=== PATIENT | female | born 1955 | race Caucasian/White ===

== ENCOUNTER 2017-04-20 11:44 | Observation (INO) | payer BC ==
[~2017-04-20] VITALS: Ht 167.6 cm; Wt 68.9 kg
[2017-04-20] MEDS ORDERED: SODIUM CHLORIDE FLUSH 10ML SYR IVF ONE (12:30)
[2017-04-20] MEDS ORDERED: ONDANSETRON 2MG/ML, 2ML IVPush ONE (12:30)
[2017-04-20] MEDS ORDERED: SODIUM CHLORIDE 0.9% 1,000ML IVBOLUS ONE (12:30)
[2017-04-20 12:35] LABS: HEMATOCRIT 43.4 % (34.6-47.8); HEMOGLOBIN 14.5 g/dL (11.7-16.4); WHITE BLOOD COUNT 15.6 x10^3/uL (3.4-10)
[2017-04-20 13:15] LABS: ASPARTATE AMINO TRANSFERASE 16 U/L (15-37); BLOOD UREA NITROGEN 9 mg/dL (7-18)
[2017-04-20] MEDS ORDERED: ONDANSETRON 2MG/ML, 2ML ONE (13:21)
[2017-04-20] MEDS ORDERED: PROMETHAZINE 25 MG/ML, 1ML IM ONE (14:00)
[2017-04-20] MEDS ORDERED: PROMETHAZINE 25 MG/ML, 1ML ONE (14:01)
[2017-04-20] MEDS ORDERED: morphine SULFATE 10 MG/ML, 1ML IVPush ONE (14:30)
[2017-04-20] MEDS ORDERED: morphine SULFATE 10 MG/ML, 1ML ONE (14:35)
[2017-04-20] MEDS ORDERED: DICYCLOMINE 10 MG/ML, 2ML IM ONE (17:00)
[2017-04-20] MEDS ORDERED: LORazepam 2 MG/ML, 1ML ONE (17:41)
[2017-04-20 18:10] VITALS: BP 115/68
[2017-04-20] MEDS ORDERED: ONDANSETRON 2MG/ML, 2ML IVPush PRN (18:30)
[2017-04-20] MEDS ORDERED: ENOXAPARIN 40 MG/0.4 ML SQ SCH (18:30)
[2017-04-20] MEDS ORDERED: ONDANSETRON ODT 4 MG PO PRN (18:30)
[2017-04-20] MEDS ORDERED: HYDROcodone/APAP 5/325 TABLET PO PRN (18:30)
[2017-04-20] MEDS ORDERED: DOCUSATE 100 MG CAPSULE PO PRN (18:30)
[2017-04-20] MEDS ORDERED: ACETAMINOPHEN 325 MG TABLET PO PRN (18:30)
[2017-04-20] MEDS ORDERED: POLYETHYLENE GLYCOL 17 GM PACKET PO PRN (18:30)
[2017-04-20] MEDS ORDERED: hydrALAzine 20 MG/ML, 1ML IVPush PRN (18:30)
[2017-04-20] MEDS ORDERED: BISACODYL 10 MG SUPP PR PRN (18:30)
[2017-04-20] MEDS ORDERED: ZOLPIDEM 5MG TABLET PO PRN (18:30)
[2017-04-20] MEDS ORDERED: morphine SULFATE 10 MG/ML, 1ML IVPush PRN (18:30)
[2017-04-20 19:49] VITALS: BP 145/78
[2017-04-20] MEDS: NS + 20MEQ KCL 1,000 ML IV SCH (20:56)
[2017-04-20] MEDS: FAMOTIDINE 20 MG TABLET PO SCH (21:02)
[2017-04-20] MEDS ORDERED: PROMETHAZINE 25 MG/ML, 1ML IM PRN (23:30)
[2017-04-21 03:29] VITALS: BP 153/53
[2017-04-21] MEDS: NS + 20MEQ KCL 1,000 ML IV SCH (05:27)
[2017-04-21 06:02] LABS: HEMATOCRIT 41.1 % (34.6-47.8); HEMOGLOBIN 13.9 g/dL (11.7-16.4)
[2017-04-21 06:21] LABS: BLOOD UREA NITROGEN 9 mg/dL (7-18)
[2017-04-21 07:38] VITALS: BP 118/71
[2017-04-21] MEDS: FAMOTIDINE 20 MG TABLET PO SCH (08:14)
[2017-04-21 14:31] VITALS: BP 132/64
== END 2017-04-21 17:05 | disposition home or self-care (01) ==
LOC: ED 15:39 → INTOOBSV 15:48 → EDIP 15:48 → 4NOR 17:55
PROVIDERS: ADMIT Hospitalist; ATTEND Family Medicine
DX: R10.9 Unspecified abdominal pain (principal); R11.2 Nausea with vomiting, unspecified; D72.829 Elevated white blood cell count, unspecified
CPT/HCPCS: 36415; 74022; 80048; 80053; 81003; 83690; 85025; 85651; 93005; 96361; 96372; 96374; 96375; 96376; 99285; G0378; J1650; J2270; J2405; J2550; J3480; J7030; Q0162

== ENCOUNTER 2017-06-12 09:14 | Inpatient (IN) | payer BC ==
[~2017-06-12] VITALS: Ht 167.6 cm; Wt 67.8 kg
[2017-06-12] MEDS ORDERED: ONDANSETRON 2MG/ML, 2ML ONE (10:26)
[2017-06-12] MEDS ORDERED: MORPHINE SULFATE 4 MG/ML, 1ML ONE ×2 (10:26→11:36)
[2017-06-12] MEDS ORDERED: FAMOTIDINE 20 MG/2 ML ONE (10:27)
[2017-06-12] MEDS ORDERED: FAMOTIDINE 20 MG/2 ML IVP ONE (10:30)
[2017-06-12] MEDS ORDERED: SODIUM CHLORIDE 0.9% 1,000ML IVBOLUS ONE (10:30)
[2017-06-12] MEDS ORDERED: SODIUM CHLORIDE FLUSH 10ML SYR IVF ONE (10:30)
[2017-06-12] MEDS ORDERED: ONDANSETRON 2MG/ML, 2ML IVPush ONE (10:30)
[2017-06-12] MEDS: MORPHINE SULFATE 4 MG/ML, 1ML IVPush PRN ×2 (10:31→11:38)
[2017-06-12 10:52] LABS: MEAN CORPUSCULAR HEMOGLOBIN 31.2 pg (27.0-34.8); MEAN CORPUSCULAR VOLUME 91.6 fL (80-100); MEAN PLATELET VOLUME 9.5 fL (7.4-10.4); PLATELET COUNT 253 x10^3/uL (130-400); RED CELL DISTRIBUTION WIDTH 12.9 % (9.6-15.2)
[2017-06-12 11:01] LABS: ALANINE AMINOTRANSFERASE 22 U/L (12-78); ALBUMIN 4.3 g/dL (3.4-5.0); ANION GAP 12 mmol/L (5-15); CALCIUM 9.4 mg/dL (8.5-10.1); CHLORIDE 107 mmol/L (98-107); CREATININE 0.91 mg/dL (0.55-1.02)
[2017-06-12 11:03] LABS: ALKALINE PHOSPHATASE 83 U/L (45-117); BILIRUBIN,TOTAL 0.6 mg/dL (0.2-1.0)
[2017-06-12 11:13] LABS: MD YES
[2017-06-12 11:14] LABS: BAND#(MANUAL) 0.56 x10^3/uL; BANDS%(MANUAL) 3 % (0-7); LYMPH#(MANUAL) 2.07 x10^3/uL (1-3.4); LYMPHS% (MANUAL) 11 % (22-44); MONOS#(MANUAL) 1.32 x10^3/uL (0.3-2.7); MONOS% (MANUAL) 7 % (2-9); SEG#(MANUAL) 14.85 x10^3/uL (1.8-6.8); SEGS% (MANUAL) 79 % (42-75)
[2017-06-12 11:15] LABS: <PLATELET ESTIMATE> ADEQUATE; <PLT MORPHOLOGY> NORMAL PLT MORPH; <RBC MORPHOLOGY> NORMAL
[2017-06-12 11:55] LABS: MICROSCOPIC NOT IND
[2017-06-12 11:58] LABS: CULTURE INDICATED? NO
[2017-06-12 14:25] VITALS: BP 129/80
[2017-06-12] MEDS ORDERED: ONDANSETRON 2MG/ML, 2ML IVPush PRN (15:00)
[2017-06-12] MEDS ORDERED: PROMETHAZINE 25 MG/ML, 1ML IM PRN (15:00)
[2017-06-12] MEDS ORDERED: ACETAMINOPHEN 325 MG TABLET PO PRN (16:30)
[2017-06-12] MEDS ORDERED: morphine SULFATE 10 MG/ML, 1ML IVPush PRN (16:30)
[2017-06-12] MEDS ORDERED: OXYcodone IR 5MG TABLET PO PRN (16:30)
[2017-06-12] MEDS ORDERED: ENALAPRILAT 1.25 MG/ML, 2ML IVPush PRN (16:30)
[2017-06-12] MEDS ORDERED: hydrALAzine 20 MG/ML, 1ML IVPush PRN (16:30)
[2017-06-12] MEDS ORDERED: POTASSIUM CHLORIDE 20 MEQ TAB.ER.PRT PO ONE (16:30)
[2017-06-12 17:02] LABS: FREE T4 (FREE THYROXINE) 1.42 ng/dL (0.76-1.46); THYROID STIMULATING HORMONE 1.91 mIU/L (0.358-3.740)
[2017-06-12 17:04] LABS: AMPHETAMINE SCREEN, URINE Negative (Negative); BARBITURATE SCREEN, URINE Negative (Negative); BENZODIAZEPINE SCREEN, URINE Negative (Negative); CANNABINOID SCREEN, URINE Positive (Negative); COCAINE SCREEN, URINE Negative (Negative); METHADONE SCREEN, URINE Negative (Negative); OPIATE SCREEN, URINE Positive (Negative)
[2017-06-12 17:24] LABS: HEMOGLOBIN A1C 5.4 % (4.2-6.3)
[2017-06-12] MEDS: D5%-0.9% NACL+KCL 20MEQ 1,000 ML IV SCH (17:45)
[2017-06-12] MEDS: METOCLOPRAMIDE 5 MG/ML, 2ML IVPush SCH (17:46)
[2017-06-12] MEDS: HEPARIN 5,000 UNITS/ML, 1ML SQ SCH (20:22)
[2017-06-12 20:23] VITALS: BP 100/64
[2017-06-13 01:28] VITALS: BP 97/60
[2017-06-13] MEDS: METOCLOPRAMIDE 5 MG/ML, 2ML IVPush SCH ×3 (01:32→17:24)
[2017-06-13] MEDS: D5%-0.9% NACL+KCL 20MEQ 1,000 ML IV SCH ×2 (03:05→13:59)
[2017-06-13] MEDS: HEPARIN 5,000 UNITS/ML, 1ML SQ SCH ×2 (05:16→13:00)
[2017-06-13 05:53] LABS: BASOPHILS # (AUTO) 0.03 x10^3/uL (0-0.1); BASOPHILS % (AUTO) 0 % (0-1); EOSINOPHILS # (AUTO) 0.01 x10^3/uL (0-0.4); EOSINOPHILS % (AUTO) 0 % (1-7); LYMPHOCYTES # (AUTO) 2.34 x10^3/uL (1-3.4); LYMPHOCYTES % (AUTO) 19 % (22-44); MD NO; MEAN CORPUSCULAR HEMOGLOBIN 30.9 pg (27.0-34.8); MEAN PLATELET VOLUME 8.4 fL (7.4-10.4); MONOCYTES # (AUTO) 0.99 x10^3/uL (0.2-0.8); MONOCYTES % (AUTO) 8 % (2-9); NEUTROPHILS # (AUTO) 9.11 x10^3/uL (1.8-6.8); NEUTROPHILS % (AUTO) 73 % (42-75); PLATELET COUNT 173 x10^3/uL (130-400); RED BLOOD COUNT 4.28 x10^6/uL (3.82-5.3)
[2017-06-13 06:03] LABS: CHLORIDE 113 mmol/L (98-107)
[2017-06-13 06:09] LABS: ALANINE AMINOTRANSFERASE 15 U/L (12-78); ALBUMIN 3.2 g/dL (3.4-5.0); ALKALINE PHOSPHATASE 67 U/L (45-117); ANION GAP 4 mmol/L (5-15); BILIRUBIN,TOTAL 1.1 mg/dL (0.2-1.0); CALCIUM 8.7 mg/dL (8.5-10.1); CHOL/HDL RATIO 3.6; CHOLESTEROL, TOTAL 171 mg/dL (140-239); CREATININE 0.76 mg/dL (0.55-1.02); HDL CHOL % 28 % (28-40); HDL CHOLESTEROL (DIRECT) 48 mg/dL (40-60); LDL CHOLESTEROL,CALCULATED 98 mg/dL (54-169); TRIGLYCERIDES 126 mg/dL (50-200); VLDL CHOLESTEROL 25 mg/dL (0-25)
[2017-06-13 09:27] VITALS: BP 112/73
[2017-06-13 14:17] VITALS: BP 138/80
[2017-06-13] MEDS ORDERED: PROM25SU34 RC (17:33)
== END 2017-06-13 18:24 | disposition home or self-care (01) | DRG 392 ==
LOC: ED 10:15 → EDIP 12:09 → 3NE 13:52
PROVIDERS: ADMIT Internal Medicine; ATTEND Internal Medicine
DX: R11.2 Nausea with vomiting, unspecified (principal); D72.823 Leukemoid reaction; D72.829 Elevated white blood cell count, unspecified; E87.6 Hypokalemia; R20.8 Other disturbances of skin sensation; F12.10 Cannabis abuse, uncomplicated
CPT/HCPCS: 36415; 74021; 80053; 80061; 80307; 81003; 83036; 83690; 83735; 84100; 84439; 84443; 85025; 93005; 96361; 96374; 96375; 96376; J2405; J2550; G0479; J2765; J3480; J7030; S0028

== ENCOUNTER 2018-09-28 08:45 | Inpatient (IN) | payer BC ==
[~2018-09-28] VITALS: Ht 167.6 cm; Wt 73.9 kg
[~2018-09-28 08:45] MED LIST: PROM25SU34 RC
--- NOTE | 2018-09-28 08:48 | NUR ---
PATIENT ARRIVES WITH RONNISA FROM HOME WITH ABDOMINAL MIGRAINES EXACERBATION. STATES LONG HX OF THESE INCLUDING RECENT ENDO AND COLONOSCOPY. PATIENT STATES PHENERGAN HELPS. PATIENT HAD FENTANYL 100MCG AND PHENERGAN IN ROUTE. IN BED, GOWN ON, ON MONITOR. 93% ROOM AIR, PLACED ON TWO LITERS NC
[2018-09-28] MEDS ORDERED: METOCLOPRAMIDE 5 MG/ML, 2ML ONE (08:56)
[2018-09-28] MEDS ORDERED: SODIUM CHLORIDE 0.9% 1,000ML IVBOLUS ONE (09:00)
[2018-09-28] MEDS ORDERED: METOCLOPRAMIDE 5 MG/ML, 2ML IVPush ONE (09:00)
[2018-09-28 09:10] LABS: BASOPHILS # (AUTO) 0.02 x10^3/uL (0-0.1); BASOPHILS % (AUTO) 0 % (0-1); EOSINOPHILS # (AUTO) 0.02 x10^3/uL (0-0.4); EOSINOPHILS % (AUTO) 0 % (1-7); LYMPHOCYTES # (AUTO) 1.48 x10^3/uL (1-3.4); LYMPHOCYTES % (AUTO) 10 % (22-44); MD NO; MEAN CORPUSCULAR HEMOGLOBIN 29.7 pg (27.0-34.8); MEAN CORPUSCULAR HGB CONC 32.3 g/dL (32.4-35.8); MEAN CORPUSCULAR VOLUME 91.9 fL (80-100); MEAN PLATELET VOLUME 8.6 fL (7.4-10.4); MONOCYTES # (AUTO) 0.25 x10^3/uL (0.2-0.8); MONOCYTES % (AUTO) 2 % (2-9); NEUTROPHILS # (AUTO) 13.09 x10^3/uL (1.8-6.8); NEUTROPHILS % (AUTO) 88 % (42-75); PLATELET COUNT 231 x10^3/uL (130-400); RED BLOOD COUNT 4.92 x10^6/uL (3.82-5.3)
[2018-09-28 09:17] LABS: CHLORIDE 106 mmol/L (98-107)
[2018-09-28 09:22] LABS: ALANINE AMINOTRANSFERASE 20 U/L (12-78); ALBUMIN 3.9 g/dL (3.4-5.0); ANION GAP 7 mmol/L (5-15); CALCIUM 9.1 mg/dL (8.5-10.1)
[2018-09-28 09:24] LABS: MICROSCOPIC NOT IND
[2018-09-28 09:24] LABS: ALKALINE PHOSPHATASE 89 U/L (45-117); BILIRUBIN,TOTAL 0.6 mg/dL (0.2-1.0); TOTAL PROTEIN 7.1 g/dL (6.4-8.2)
[2018-09-28 09:31] LABS: CULTURE INDICATED? NO
[2018-09-28] MEDS ORDERED: PROMETHAZINE 25 MG/ML, 1ML IM ONE (10:00)
[2018-09-28] MEDS ORDERED: PROMETHAZINE 25 MG/ML, 1ML ONE (10:07)
[2018-09-28] MEDS ORDERED: MORPHINE SULFATE 4 MG/ML, 1ML ONE ×2 (10:50→15:07)
--- NOTE | 2018-09-28 10:57 | NUR ---
PATIENT HAS MULTIPLE REQUESTS. WALKED HER X1 TO BATHROOM AND SHE WAS VERY UPSET AND MOANING. GOT HER BACK IN BED WITH TWO BLANKETS PATIENT ON MONITOR. MEDICATED AND FLUIDS HUNG. THEN PATIENT HAD TO URINATE AGAIN AND APPARENTLY HELPED HER ON BEDPAN BEFORE I WAS AWARE OF THIS. I BROUGHT A BEDSIDE COMMODE INTO ROOM AND HELPED HER TO BEDSIDE COMMODE. SHE HAD CLEAR URINE OUT. SHE IS ANGRY, UPSET, MOANING. MEDICATING AGAIN. MOANING SHE STATES ABD PAIN AND NAUSEA. ONE LITER FLUID IN.
[2018-09-28] MEDS ORDERED: MORPHINE SULFATE 4 MG/ML, 1ML IVPush PRN (11:00)
--- NOTE | 2018-09-28 11:19 | NUR ---
patient awaiting ct scan. states some improvement from morphine but still very upset/moaning/nausea.
--- NOTE | 2018-09-28 11:43 | NUR ---
PATIENT IN ROOM, ROOM DIMMED FOR COMFORT. VSS. PATIENT AWAITING CT RESULTS.
--- NOTE | 2018-09-28 14:58 | NUR ---
patient continues to wait for room assignment on med surg. vss. in bed, rails up
--- NOTE | 2018-09-28 15:27 | NUR ---
attempted to call report to [facility] on 4th floor. patient in bed, calm. PA was here rounding on patient. Patient was asleep, but when she woke up she asked for pain meds, but is very quiet and has been quietly sleeping for hours. PA and myself collaborated and agree patient can wait until she is more awake for pain medications as she is very sleepy for more pain medications at this time. will attempt to call fourth floor again for report, nurse currently not available. patient in bed, rails up.
[2018-09-28] MEDS ORDERED: ACETAMINOPHEN 325 MG TABLET PO PRN (15:30)
[2018-09-28] MEDS: ENOXAPARIN 40 MG/0.4 ML SQ SCH (15:30)
[2018-09-28] MEDS ORDERED: morphine SULFATE 10 MG/ML, 1ML IVPush PRN (15:30)
[2018-09-28] MEDS ORDERED: DOCUSATE 100 MG CAPSULE PO PRN (15:30)
--- NOTE | 2018-09-28 15:42 | NUR ---
report given to hollis patient going to [phone]
--- NOTE | 2018-09-28 15:50 | NUR ---
report given britty patient rtg
[2018-09-28 15:59] LABS: HEMOGLOBIN A1C 5.5 % (4.2-6.3)
[2018-09-28 16:02] LABS: THYROID STIMULATING HORMONE 1.76 mIU/L (0.358-3.740)
[2018-09-28 16:24] VITALS: BP 130/53
[2018-09-28] MEDS: NS + 20MEQ KCL 1,000 ML IV SCH (17:01)
[2018-09-28] MEDS: PROMETHAZINE 25 MG SUPP PR SCH ×3 (17:02→21:50)
[2018-09-28] MEDS ORDERED: MAGNESIUM SULFATE PMX 2GM/50ML 50 ML IV ONE (18:30)
[2018-09-28] MEDS ORDERED: POTASSIUM PHOSPHATE 22 MEQ in SODIUM CHLORIDE 0.9% 500 ML IV ONE (18:30)
[2018-09-28 20:23] VITALS: BP 129/61
[2018-09-28] MEDS: FAMOTIDINE 20 MG/2 ML IVPush SCH (20:37)
[2018-09-28] MEDS: ONDANSETRON 2MG/ML, 2ML IVPush SCH (20:38)
[2018-09-29 01:57] VITALS: BP 121/59
[2018-09-29] MEDS: ONDANSETRON 2MG/ML, 2ML IVPush SCH ×2 (03:00→09:00)
[2018-09-29] MEDS: NS + 20MEQ KCL 1,000 ML IV SCH ×3 (03:58→20:50)
[2018-09-29 05:15] LABS: BASOPHILS # (AUTO) 0.04 x10^3/uL (0-0.1); BASOPHILS % (AUTO) 0 % (0-1); EOSINOPHILS % (AUTO) 0 % (1-7); LYMPHOCYTES # (AUTO) 0.88 x10^3/uL (1-3.4); LYMPHOCYTES % (AUTO) 6 % (22-44); MD NO; MEAN CORPUSCULAR HEMOGLOBIN 30.9 pg (27.0-34.8); MEAN CORPUSCULAR HGB CONC 34.3 g/dL (32.4-35.8); MEAN CORPUSCULAR VOLUME 90.2 fL (80-100); MEAN PLATELET VOLUME 8.7 fL (7.4-10.4); MONOCYTES % (AUTO) 3 % (2-9); NEUTROPHILS # (AUTO) 13.77 x10^3/uL (1.8-6.8); NEUTROPHILS % (AUTO) 91 % (42-75); PLATELET COUNT 219 x10^3/uL (130-400); RED BLOOD COUNT 4.74 x10^6/uL (3.82-5.3); RED CELL DISTRIBUTION WIDTH 12.8 % (9.6-15.2)
[2018-09-29 05:17] LABS: ANION GAP 7 mmol/L (5-15); CALCIUM 9.1 mg/dL (8.5-10.1); CHLORIDE 109 mmol/L (98-107)
[2018-09-29 05:20] LABS: ALANINE AMINOTRANSFERASE 18 U/L (12-78); ALKALINE PHOSPHATASE 83 U/L (45-117); BILIRUBIN,TOTAL 0.7 mg/dL (0.2-1.0); CREATININE 0.75 mg/dL (0.55-1.02); TOTAL PROTEIN 7.1 g/dL (6.4-8.2)
[2018-09-29] MEDS: FAMOTIDINE 20 MG/2 ML IVPush SCH ×2 (07:56→20:50)
[2018-09-29 09:38] VITALS: BP 152/81
[2018-09-29 10:49] LABS: CLOSTRIDIUM DIFFICILE ANTIGEN POSITIVE; CLOSTRIDIUM DIFFICILE TOXIN NEGATIVE (Negative)
[2018-09-29] MEDS: PROMETHAZINE 25 MG SUPP PR SCH (11:03)
[2018-09-29 13:45] VITALS: BP 142/77
[2018-09-29] MEDS ORDERED: PROMETHAZINE 25 MG SUPP PR PRN (15:00)
[2018-09-29] MEDS ORDERED: ONDANSETRON 2MG/ML, 2ML IVPush PRN (15:00)
[2018-09-29] MEDS: ENOXAPARIN 40 MG/0.4 ML SQ SCH (15:30)
[2018-09-29] MEDS ORDERED: PROMETHAZINE 12.5 MG SUPP PR PRN (15:30)
[2018-09-29 19:59] VITALS: BP 163/83
[2018-09-30 01:06] VITALS: BP 150/81
[2018-09-30] MEDS: NS + 20MEQ KCL 1,000 ML IV SCH (05:00)
[2018-09-30 05:12] LABS: BASOPHILS # (AUTO) 0.03 x10^3/uL (0-0.1); BASOPHILS % (AUTO) 0 % (0-1); EOSINOPHILS # (AUTO) 0.01 x10^3/uL (0-0.4); EOSINOPHILS % (AUTO) 0 % (1-7); LYMPHOCYTES # (AUTO) 1.53 x10^3/uL (1-3.4); LYMPHOCYTES % (AUTO) 11 % (22-44); MD NO; MEAN CORPUSCULAR HEMOGLOBIN 30.4 pg (27.0-34.8); MEAN CORPUSCULAR HGB CONC 33.3 g/dL (32.4-35.8); MEAN CORPUSCULAR VOLUME 91.4 fL (80-100); MEAN PLATELET VOLUME 8.5 fL (7.4-10.4); MONOCYTES # (AUTO) 0.75 x10^3/uL (0.2-0.8); MONOCYTES % (AUTO) 5 % (2-9); NEUTROPHILS # (AUTO) 12.17 x10^3/uL (1.8-6.8); NEUTROPHILS % (AUTO) 84 % (42-75); PLATELET COUNT 230 x10^3/uL (130-400); RED CELL DISTRIBUTION WIDTH 12.8 % (9.6-15.2)
[2018-09-30 05:19] LABS: ANION GAP 7 mmol/L (5-15); CHLORIDE 104 mmol/L (98-107)
[2018-09-30 05:21] LABS: CREATININE 0.71 mg/dL (0.55-1.02)
[2018-09-30 07:48] VITALS: BP 136/66
[2018-09-30] MEDS: FAMOTIDINE 20 MG/2 ML IVPush SCH (08:17)
[2018-09-30] MEDS ORDERED: VANC125C3 PO (10:18)
[2018-09-30] MEDS ORDERED: VANCOMYCIN 50 MG/ML ORAL SUSP PO SCH (10:30)
[2018-09-30 14:33] VITALS: BP 152/86
== END 2018-09-30 15:29 | disposition home or self-care (01) | DRG 372 ==
LOC: ED 10:02 → EDIP 12:05 → 4NOR 16:10
PROVIDERS: ADMIT Internal Medicine; ATTEND Internal Medicine
DX: A04.72 Enterocolitis due to Clostridium difficile, not specified as recurrent (principal); E87.1 Hypo-osmolality and hyponatremia; G43.D0 Abdominal migraine, not intractable; K31.89 Other diseases of stomach and duodenum; R11.2 Nausea with vomiting, unspecified; E87.6 Hypokalemia; E83.39 Other disorders of phosphorus metabolism; F12.10 Cannabis abuse, uncomplicated; K57.90 Diverticulosis of intestine, part unspecified, without perforation or abscess without bleeding; R73.9 Hyperglycemia, unspecified; K44.9 Diaphragmatic hernia without obstruction or gangrene; E83.42 Hypomagnesemia; E86.0 Dehydration; D72.829 Elevated white blood cell count, unspecified
CPT/HCPCS: 36415; 87046; 87427; J3370; J3490; 74177; 80048; 80053; 81003; 83036; 83690; 83735; 84100; 84443; 85025; 87324; 87493; 96361; 96372; 96374; 96375; 99285; G0378; J2550; J3480; J2765; J3475; J7030; J7040

== ENCOUNTER 2018-12-15 05:42 | Inpatient (IN) | payer BC ==
[~2018-12-15] VITALS: Ht 167.6 cm; Wt 73.6 kg
[~2018-12-15 05:42] MED LIST changes: +VANC125C3 PO
--- NOTE | 2018-12-15 05:53 | NUR ---
LISA RN: PT BIB [facility] FOR [facility] ABD PAIN. PT REPORTS SHE IS HAVING AN ABDOMINAL MIGRAINE. PT CRYING AND MOVING AROUND BED. VS STABLE. UNABLE TO GET AN ORAL TEMP AT THIS TIME. PT HAS NAUSEA. CALL LIGHT IN PLACE. REPORT GIVEN TO OBED APARICIO
--- NOTE | 2018-12-15 06:15 | NUR ---
REPORT FROM KENDY CLAY. TECH AT BEDSIDE TO PLACE PIV. PT VOMITING AND COMPLAINING OF DIARRHEA. PT PLACED ON ISO.
[2018-12-15] MEDS ORDERED: METOCLOPRAMIDE 5 MG/ML, 2ML IVPush ONE (06:30)
[2018-12-15] MEDS ORDERED: DIPHENHYDRAMINE 50 MG/ML, 1ML IVPush ONE (06:30)
[2018-12-15] MEDS ORDERED: SODIUM CHLORIDE FLUSH 10ML SYR IVF ONE (06:30)
[2018-12-15] MEDS ORDERED: FAMOTIDINE 20 MG/2 ML IVPush ONE (06:30)
[2018-12-15] MEDS ORDERED: FAMOTIDINE 20 MG TABLET PO ONE (06:30)
[2018-12-15] MEDS ORDERED: METOCLOPRAMIDE 5 MG/ML, 2ML ONE (06:33)
[2018-12-15] MEDS ORDERED: DIPHENHYDRAMINE 50 MG/ML, 1ML ONE (06:33)
[2018-12-15] MEDS ORDERED: FAMOTIDINE 20 MG/2 ML ONE (06:34)
[2018-12-15 06:48] LABS: MEAN CORPUSCULAR HEMOGLOBIN 30.2 pg (27.0-34.8); MEAN CORPUSCULAR HGB CONC 32.9 g/dL (32.4-35.8); MEAN CORPUSCULAR VOLUME 91.8 fL (80-100); MEAN PLATELET VOLUME 8.8 fL (7.4-10.4); PLATELET COUNT 248 x10^3/uL (130-400); RED BLOOD COUNT 4.88 x10^6/uL (3.82-5.3); RED CELL DISTRIBUTION WIDTH 12.9 % (9.6-15.2)
--- NOTE | 2018-12-15 06:51 | NUR ---
PT MEDICATED. BEDSIDE COMMODE PLACED IN ROOM. PT AWARE THAT STOOL SAMPLE AND UA. REPORT TO GRETCHEN CLAY.
[2018-12-15 06:58] LABS: ALANINE AMINOTRANSFERASE 24 U/L (12-78); ALBUMIN 4.3 g/dL (3.4-5.0); ANION GAP 13 mmol/L (5-15); CALCIUM 9.4 mg/dL (8.5-10.1); CHLORIDE 105 mmol/L (98-107); CREATININE 1.07 mg/dL (0.55-1.02)
[2018-12-15 07:03] LABS: ALKALINE PHOSPHATASE 97 U/L (45-117); BILIRUBIN,TOTAL 0.5 mg/dL (0.2-1.0); TOTAL PROTEIN 7.7 g/dL (6.4-8.2)
--- NOTE | 2018-12-15 07:03 | NUR ---
RECEIVED REPORT FROM OBED APARICIO. ASSUMED CARE OF PATIENT. PATIENT LYING ON GURNEY WITH EYE MASK IN PLACE.
[2018-12-15 07:08] LABS: BASOPHILS # (AUTO) 0.04 x10^3/uL (0-0.1); BASOPHILS % (AUTO) 0 % (0-1); EOSINOPHILS # (AUTO) 0.02 x10^3/uL (0-0.4); EOSINOPHILS % (AUTO) 0 % (1-7); LYMPHOCYTES # (AUTO) 1.52 x10^3/uL (1-3.4); LYMPHOCYTES % (AUTO) 9 % (22-44); MD SCAN; MONOCYTES # (AUTO) 0.56 x10^3/uL (0.2-0.8); MONOCYTES % (AUTO) 3 % (2-9); NEUTROPHILS # (AUTO) 15.69 x10^3/uL (1.8-6.8); NEUTROPHILS % (AUTO) 88 % (42-75)
[2018-12-15 07:26] LABS: MICROSCOPIC NOT IND
--- NOTE | 2018-12-15 07:27 | NUR ---
UA COLLECTED AND SENT TO LAB.
[2018-12-15 07:28] LABS: CULTURE INDICATED? NO
[2018-12-15] MEDS ORDERED: HALOPERIDOL 5 MG/ML IM ONE (08:00)
[2018-12-15] MEDS ORDERED: PROMETHAZINE 25 MG/ML, 1ML IM ONE (08:00)
[2018-12-15] MEDS ORDERED: HALOPERIDOL 5 MG/ML ONE (08:29)
[2018-12-15] MEDS ORDERED: PROMETHAZINE 25 MG/ML, 1ML ONE (08:29)
--- NOTE | 2018-12-15 09:08 | NUR ---
PT REPORTS NO DECREASE IN PAIN DESPITE MEDICATION. LOWERED HEAD OF BED AND PROVIDED PILLOW PER PATIENTS REQUEST. PT SPOUSE AT BEDSIDE.
[2018-12-15] MEDS ORDERED: PARO7.5C2 PO (12:26)
[2018-12-15] MEDS ORDERED: RIZA10TA22 BC (12:30)
[2018-12-15] MEDS ORDERED: AMIT10TA PO (12:31)
[2018-12-15 14:00] VITALS: BP 136/56
[2018-12-15] MEDS ORDERED: METOCLOPRAMIDE 5 MG/ML, 2ML IVPush PRN (14:30)
[2018-12-15] MEDS ORDERED: ONDANSETRON 2MG/ML, 2ML IVPush PRN (14:30)
[2018-12-15] MEDS ORDERED: morphine SULFATE 10 MG/ML, 1ML IVPush PRN (14:30)
[2018-12-15] MEDS ORDERED: PROMETHAZINE 25 MG/ML, 1ML IM PRN (14:30)
[2018-12-15] MEDS: ENOXAPARIN 40 MG/0.4 ML SQ SCH (15:24)
[2018-12-15] MEDS: POTASSIUM CHLORIDE 40 MEQ in SODIUM CHLORIDE 0.9% 1,000 ML IV SCH (15:24)
[2018-12-15 19:31] VITALS: BP 100/53
[2018-12-16] MEDS: POTASSIUM CHLORIDE 40 MEQ in SODIUM CHLORIDE 0.9% 1,000 ML IV SCH ×2 (00:04→06:44)
[2018-12-16 00:53] VITALS: BP 112/63
[2018-12-16 04:41] LABS: BASOPHILS # (AUTO) 0.02 x10^3/uL (0-0.1); BASOPHILS % (AUTO) 0 % (0-1); EOSINOPHILS % (AUTO) 0 % (1-7); LYMPHOCYTES # (AUTO) 1.45 x10^3/uL (1-3.4); LYMPHOCYTES % (AUTO) 9 % (22-44); MD NO; MEAN CORPUSCULAR HEMOGLOBIN 30.1 pg (27.0-34.8); MEAN CORPUSCULAR VOLUME 91.4 fL (80-100); MEAN PLATELET VOLUME 8.9 fL (7.4-10.4); MONOCYTES # (AUTO) 0.91 x10^3/uL (0.2-0.8); MONOCYTES % (AUTO) 6 % (2-9); NEUTROPHILS # (AUTO) 13.63 x10^3/uL (1.8-6.8); NEUTROPHILS % (AUTO) 85 % (42-75); PLATELET COUNT 239 x10^3/uL (130-400); RED CELL DISTRIBUTION WIDTH 13.1 % (9.6-15.2)
[2018-12-16 04:49] LABS: CHLORIDE 109 mmol/L (98-107)
[2018-12-16 04:53] LABS: HEMOGLOBIN A1C 5.5 % (4.2-6.3)
[2018-12-16 04:58] LABS: ALANINE AMINOTRANSFERASE 22 U/L (12-78); ALBUMIN 4.2 g/dL (3.4-5.0); ALKALINE PHOSPHATASE 88 U/L (45-117); ANION GAP 7 mmol/L (5-15); CALCIUM 9.1 mg/dL (8.5-10.1); CREATININE 0.85 mg/dL (0.55-1.02); TOTAL PROTEIN 7.5 g/dL (6.4-8.2)
[2018-12-16 08:27] VITALS: BP 150/88
[2018-12-16 13:01] VITALS: BP 144/89
[2018-12-16] MEDS: ENOXAPARIN 40 MG/0.4 ML SQ SCH (15:00)
== END 2018-12-16 17:25 | disposition home or self-care (01) | DRG 392 ==
LOC: ED 06:54 → EDIP 09:47 → 3NW 10:05
PROVIDERS: ADMIT Internal Medicine; ATTEND Internal Medicine
DX: R11.2 Nausea with vomiting, unspecified (principal); D72.829 Elevated white blood cell count, unspecified; E11.65 Type 2 diabetes mellitus with hyperglycemia; E86.0 Dehydration; E87.6 Hypokalemia; F12.20 Cannabis dependence, uncomplicated; G89.29 Other chronic pain; G43.D0 Abdominal migraine, not intractable; K44.9 Diaphragmatic hernia without obstruction or gangrene; K57.90 Diverticulosis of intestine, part unspecified, without perforation or abscess without bleeding; Z80.7 Family history of other malignant neoplasms of lymphoid, hematopoietic and related tissues
CPT/HCPCS: 36415; 99285; J3490; 80053; 81003; 83036; 83690; 83735; 84100; 85025; 96372; 96374; 96375; G0378; J2405; J2550; J3480; J1200; J1630; J2765; J7030

== ENCOUNTER 2019-10-14 01:15 | Emergency (ER) | payer BC ==
[~2019-10-14] VITALS: Ht 167.6 cm; Wt 70.5 kg
[~2019-10-14 01:15] MED LIST changes: +AMIT10TA PO; +PARO7.5C2 PO; +RIZA10TA92 BC
[2019-10-14] MEDS ORDERED: DIPHENHYDRAMINE 50 MG/ML, 1ML IVPush ONE (01:30)
[2019-10-14] MEDS ORDERED: KETOROLAC 30 MG/1 ML IVPush ONE (01:30)
[2019-10-14] MEDS ORDERED: MORPHINE SULFATE 4 MG/ML, 1ML IVPush PRN (01:30)
[2019-10-14] MEDS ORDERED: METOCLOPRAMIDE 5 MG/ML, 2ML IVPush ONE (01:30)
[2019-10-14] MEDS ORDERED: DIPHENHYDRAMINE 50 MG/ML, 1ML ONE (01:39)
[2019-10-14] MEDS ORDERED: METOCLOPRAMIDE 5 MG/ML, 2ML ONE (01:39)
[2019-10-14] MEDS ORDERED: KETOROLAC 30 MG/1 ML ONE (01:40)
--- NOTE | 2019-10-14 01:54 | NUR ---
PT BROUGHT IN BY [facility]. PT STATES SHE HAD A SUDDEN ONSET OF N/V/D AND ABD PAIN. PT STATES SHE HAS HX OF ABD MIGRAINES AND THAT SHE HAD A SIMILAR EPISODE LAST YEAR. MD AT BEDSIDE TO ASSESS PT. PLACED PT ON MONITOR. WILL CONTINUE TO MONITOR.
--- NOTE | 2019-10-14 02:02 | NUR ---
GAVE REPORT TO ADAN CLAY.
--- NOTE | 2019-10-14 02:21 | NUR ---
ASSUMED CARE OF PT AT THIS TIME. PT. AMBULATORY TO THE RESTROOM WITHOUT DIFFICULTY. REPORTS THAT SHE IS FEELING BETTER.
--- NOTE | 2019-10-14 02:41 | NUR ---
LABS DRAWN AND SENT
[2019-10-14 02:51] LABS: MEAN CORPUSCULAR HEMOGLOBIN 30.2 pg (27.0-34.8); MEAN CORPUSCULAR HGB CONC 33.1 g/dL (32.4-35.8); MEAN CORPUSCULAR VOLUME 91.2 fL (80-100); MEAN PLATELET VOLUME 8.9 fL (7.4-10.4); PLATELET COUNT 220 x10^3/uL (130-400); RED BLOOD COUNT 4.75 x10^6/uL (3.82-5.3); RED CELL DISTRIBUTION WIDTH 12.8 % (9.6-15.2)
[2019-10-14 02:59] LABS: ALANINE AMINOTRANSFERASE 21 U/L (12-78); ALBUMIN 4.1 g/dL (3.4-5.0); ANION GAP 10 mmol/L (5-15); CALCIUM 8.5 mg/dL (8.5-10.1); CHLORIDE 105 mmol/L (98-107); CREATININE 1.04 mg/dL (0.55-1.02)
[2019-10-14 03:02] LABS: ALKALINE PHOSPHATASE 107 U/L (45-117); BILIRUBIN,TOTAL 0.5 mg/dL (0.2-1.0); TOTAL PROTEIN 7.9 g/dL (6.4-8.2)
[2019-10-14 03:07] LABS: BASOPHILS % (AUTO) 0 % (0-1); EOSINOPHILS # (AUTO) 0.01 x10^3/uL (0-0.4); EOSINOPHILS % (AUTO) 0 % (1-7); LYMPHOCYTES # (AUTO) 0.44 x10^3/uL (1-3.4); LYMPHOCYTES % (AUTO) 3 % (22-44); MD SCAN; MONOCYTES # (AUTO) 0.23 x10^3/uL (0.2-0.8); MONOCYTES % (AUTO) 2 % (2-9); NEUTROPHILS # (AUTO) 14.31 x10^3/uL (1.8-6.8); NEUTROPHILS % (AUTO) 96 % (42-75)
[2019-10-14] MEDS ORDERED: MORPHINE SULFATE 4 MG/ML, 1ML ONE (03:12)
[2019-10-14] MEDS ORDERED: ONDANSETRON 2MG/ML, 2ML ONE (03:12)
--- NOTE | 2019-10-14 03:23 | NUR ---
PATIENT MEDICATED WITH ZOFRAN AND MORPHINE. WILL CONTINUE TO MONITOR AND REASSESS.
[2019-10-14] MEDS ORDERED: ONDANSETRON 2MG/ML, 2ML IVPush ONE (03:30)
[2019-10-14 04:13] VITALS: BP 126/72
== END 2019-10-14 04:17 | disposition home or self-care (01) ==
LOC: ED 01:30
DX: G43.D0 Abdominal migraine, not intractable (principal); R11.2 Nausea with vomiting, unspecified; R10.84 Generalized abdominal pain
CPT/HCPCS: 36415; 80053; 83690; 85025; 96374; 96375; 99285; J1200; J1885; J2270; J2405; J2765